=== PATIENT | male | born 1995 | race African-American/Black ===

== ENCOUNTER 2017-08-31 19:26 | Emergency (ER) | payer MEDICAID ==
[~2017-08-31] VITALS: Ht 177.8 cm; Wt 70.0 kg
[2017-08-31 19:30] VITALS: BP 126/88; PULSE 80; RESP 14; TEMP 98.8; O2SAT 99
--- NOTE | 2017-08-31 21:54 | PD ---
HPI Chief Complaint: Psychiatric Symptoms Time Seen by Provider: 21:28 Travel History International Travel<30 days: No Contact w/Intl Traveler<30days: No Traveled to known affect area: No History of Present Illness HPI 22-year-old black male presents to emergency department at the recommendation of his mother for a psychiatric evaluation. The patient states that he's been having increasing mood swings over last few weeks. He just found out 1 week ago that is girlfriend is with his baby. He had been smoking marijuana up until the time he found out that she was 2 months . He does drink alcohol on occasion. He smokes black and mild on occasion. He denies any other drugs. He denies any recent illness or injury. He denies any toxic ingestions. He denies any suicidal or homicidal ideation. He states that he has not been getting along with his mother who he lives with. His mother is been remarried but he does not consider this male individual any part of his family. The patient does not understand why he is here today. He was dropped off by his mother. Patient is from [place]. [facility] Past Medical History Narrative Medical Substance abuse, insomnia Tetanus Vaccination: < 5 Years Past Surgical History Surgical History: No Previous Surgery Social History Alcohol Use: Yes (OCC) Tobacco Use: Yes (BLACK AND MILDS) Substance Use: Yes (marijuana) Allergies-Medications (Allergen,Severity, Reaction): Coded Allergies: No Known Allergies (Unverified , 08/31/17) Review of Systems Except as stated in HPI: all other systems reviewed are Neg Psychiatric: Positive: Mood Disorder, Substance Abuse, No: Anxiety, Depression , Suicidal Ideations, Disorder of Thought, Homicidal Ideation Physical Exam Narrative GENERAL: Well-nourished, well-developed patient. SKIN: Warm and dry. HEAD: Normocephalic and atraumatic. EYES: No scleral icterus. No injection or drainage. ENT: No nasal drainage noted. Mucous membranes pink. Airway patent. NECK: Supple, trachea midline. Moves head freely without obvious discomfort. CARDIOVASCULAR: Regular rate and rhythm without murmurs, gallops, or rubs. RESPIRATORY: Breath sounds equal bilaterally. No accessory muscle use. GASTROINTESTINAL: Abdomen soft, non-tender, nondistended. EXTREMITIES: No cyanosis or edema. BACK: Nontender without obvious deformity. No CVA tenderness. NEURO: Patient is alert and oriented. no sensorimotor deficits. Nonfocal. Normal speech. PSYCH: No delusions. No auditory or visual hallucinations. Data Data Last Documented VS Vital Signs Date Time Temp Pulse Resp B/P (MAP) Pulse Ox O2 Delivery O2 Flow Rate FiO2 08/31/17 19:30 98.8 80 14 126/88 (101) 99 Room Air MDM Medical Decision Making Medical Screen Exam Complete: Yes Emergency Medical Condition: Yes Medical Record Reviewed: Yes Differential Diagnosis MDM: High Differential diagnoses: Schizophrenia, schizoaffective disorder, bipolar, anxiety, depression, adjustment reaction, mood disorder NOS, ODD, depressive disorder NOS, dementia, dementia with agitation, psychosis NOS, substance induced mood disorder, intermittent explosive disorder, Asperger syndrome, infection,electrolyte abnormality, malingering. Narrative Course I have had a lengthy discussion with this patient. He does not appear to be acutely psychotic or confused. He appears be appropriate. He is able to confer 's freely. He does not exhibit any emergent psychiatric problems at this time. He does not meet criteria for Nunn act. He denies any suicidal or homicidal ideation. I've explained to the patient that he needs to follow-up outpatient with a psychologist or a psychiatrist but there is no emergent need to be admitted today. The patient verbally states understanding and agrees. Patient is given outpatient treatment information and discharged in stable condition This is mood disorder NOS Diagnosis Primary Impression: mood disorder NOS Patient Instructions: General Instructions Additional Instructions: Rest. Avoid any confrontation with your parents. Avoid drugs and alcohol. Follow-up with outpatient treatment information for psychological evaluation and treatment. Return to the ER anytime for any emergent problems. Med/Other Pt SpecificInfo: No Meds Exist/No RX given Disposition: 01 DISCHARGE HOME Condition: Stable Yo Nogueira Aug 31, 2017 21:54
== END 2017-08-31 22:26 | disposition home or self-care (01) ==
LOC: NEPD 19:26
DX: F39 Unspecified mood [affective] disorder (principal); G47.00 Insomnia, unspecified; F17.200 Nicotine dependence, unspecified, uncomplicated
CPT/HCPCS: 99282